=== PATIENT | female | born 2000 | race Asian ===

== ENCOUNTER 2024-04-29 18:14 | Emergency (ER) | payer BC, SELFPAY ==
[2024-04-29 18:26] VITALS: BP 121/71
[2024-04-29 18:51] LABS: % Basophils 0.8 % (0-2); % Eosinophils 3.7 % (0-6); % Immature Granulocytes 0.1 % (0-0.5); % Lymphocytes 40.2 % (20.5-51.1); % Monocytes 12.3 % (1.7-9.3); % Neutrophils 42.9 % (42.2-75.2); Absolute Basophils 0.1 10^3/uL (0-0.2); Absolute Eosinophils 0.3 10^3/uL (0-0.7); Absolute Lymphocytes 2.9 10^3/uL (1.2-3.4); Absolute Monocytes 0.9 10^3/uL (0.1-0.6); Absolute Neutrophils 3.1 10^3/uL (1.4-6.5); Hematocrit 39.4 % (37.0-47.0); Hemoglobin 13.4 g/dL (12.0-16.0); Mean Corpuscular Hgb 29.7 pg (27.0-31.0); Mean Corpuscular Volume 87.4 fL (81.0-99.0); Mean Platelet Volume 9.4 fL (7.4-10.4); Nucleated Red Blood Cells % 0 %; Platelet Count 305 10^3/uL (130-400); Red Blood Cell Count 4.51 10^6/uL (4.20-5.40); Red Cell Dist. Width 12.1 % (11.5-14.5); White Blood Cell Count 7.3 10^3/uL (4.8-10.8)
[2024-04-29 19:02] LABS: HCG, Serum Qualitative Screen Positive
[2024-04-29 19:09] LABS: ALT (SGPT) 22 U/L (0-35); AST (SGOT) 22 U/L (14-36); Albumin 4.2 g/dl (3.5-5.0); Alkaline Phosphatase 48 U/L (38-126); Blood Urea Nitrogen 12 mg/dl (7-17); Calcium 8.9 mg/dl (8.4-10.2); Carbon Dioxide 26 mmol/L (22-30); Chloride 102 mmol/L (98-107); Glucose 96 mg/dl (70-99); Lipase 90 U/L (23-300); Potassium 4.2 mmol/L (3.5-5.1); Sodium 138 mmol/L (135-145); Total Bilirubin 0.2 mg/dl (0.2-1.3); Total Protein 7.1 g/dl (6.3-8.2); eGFR > 60.00
[2024-04-29 20:21] VITALS: BP 121/54
[2024-04-29 20:31] LABS: Beta HCG Quantitative 827.94 mIU/ml
--- NOTE | 2024-04-29 23:05 | ED.GENMED ---
History of Present Illness
General
Chief Complaint: Vaginal Bleeding
Source: patient
Exam Limitations: none
Time Seen by Provider: 04/29/24 20:05
Nursing documentation reviewed up to this point in time: agreed with
History of Present Illness
History of Present Illness:
Patien tot ED wtih complaint of cramping and vaginal bleeding. States LMP 03/09. She had a postitive home test on . No issues until today. 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 . To ED accompanied by spouse for eval.
Past History
Past History
ED Past Medical History: None
ED Past Surgical History: Orthopedic (Right ankle tendon tear)
Social History
Tobacco: Non-smoker
Alcohol: None
Drug: None
Personal: Single
Employment: Student
Review of Systems
Review of Systems
Allergies reviewed?: Yes
All Other Systems: ROS reviewed and negative except as documented in HPI and ROS
Constitutional: Reports no symptoms
EENT: Reports no symptoms
Respiratory: Reports no symptoms
Cardiac: Reports no symptoms
ABD/GI: Reports no symptoms
: Reports bleeding (vaginal bleeding and cramping.)
Musculoskeletal: Reports no symptoms
Skin: Reports no symptoms
Neurological: Reports no symptoms
Psychiatric: Reports no symptoms
Phy Exam
General Physical Exam
General Presentation: well appearing and no apparent distress
General age: appears stated age
General Skin: warm and dry
General Habitus: normal
General Mental: alert
Gastrointestinal Exam
Gastrointestinal Exam: non tender and soft
Genitourinary Exam Female
Exam Female: no CMT, no lesions, no mass and vaginal bleeding (minimal bleeding )
Vaginal Exam: blood
Vaginal Bleeding: minimal
Visual exam of cervix: os closed
Musculoskeletal Exam
Musculoskeletal Exam: full ROM and neuro vasc intact
Skin Exam
Skin Exam: normal color, warm/dry and no rash
Psychiatric Exam
Psychiatric Exam: normal mood/affect
Course
Orders/Labs/Results
Orders:
Orders
04/29/24 18:31
Test Result ONCE
04/29/24 18:36
US W Transvaginal Urgent
Reason For Exam: vaginal bleeding, positive preg test juanis 1
04/29/24 18:38
Type And Crossmatch [Type+Screen] Urgent
Beta HCG Quantitative Urgent
Comment: ADD ON
Complete Blood Count/With Diff Urgent
Comprehensive Metabolic Panel Urgent
HCG, Serum Qualitative Screen Urgent
Lipase Urgent
04/29/24 19:37
Add On- LAB Urgent
Tests Added?: beta quantitative
04/29/24 20:20
ABO2 Urgent
BBK Wristband Number:
Associate notified that ABO2 has been ordered: [id number]
Date: 04/29/24
Time: 18:51
[employer] Blasting ID: [id number]
Abnormal Lab Results
04/29/24
18:38
Absolute Monos (auto) 0.9 H 10^3/uL
(0.1-0.6)
Monocytes % 12.3 H %
(1.7-9.3)
04/29/24 18:38
04/29/24 18:38
Vital Signs
Initial and Last Documented VS:
Initial Vital Signs
Temp Pulse Resp BP Pulse Ox
97.8 F 67 16 121/71 100
04/29/24 18:26 04/29/24 18:26 04/29/24 18:26 04/29/24 18:26 04/29/24 18:26
Last Documented Vital Signs
Temp Pulse Resp BP Pulse Ox
97.8 F 67 18 121/54 97
04/29/24 18:26 04/29/24 18:26 04/29/24 21:03 04/29/24 20:21 04/29/24 21:03
*Radiology
Radiology exam reviewed: radiology read reviewed
*Pulse Oximetry
Patient hypoxic: no
*Critical Care Note
Total Time (30-74mins, 75-104mins- exclusive of procedures): Not Applicable
Update Note
Update Note:
Patient to ED for eval of cramping and vaginal bleleding. LMP 03/09, postive home test on Apr 15. US report reviewed with her. sac noted low in uterus concerning for possible loss. HCG at 820. She has an appt scheduled
for with her OB/leonardo. SHe will call in AM to move appt. WIll need repeat HCG in 2 days. repeat US in 1 week. SHe was given instructions on s/s/ to return to ED and she is agreeable to plan.
ED Attending Note
-
Portions of this chart may have been created with voice recognition software.� Occasional wrong word or��sound alike� substitutions may have occurred due to the inherent limitations of voice recognition software.
Discharge Plan
Departure
Patient Disposition: Home (Routine Discharge)
Date of Disposition: 04/29/24
Time of Disposition: 21:00
Patient with high blood pressure during this ER visit?: No
Condition: Good
Covid-19: Not Applicable
Discharge Problem:
Bleeding in early
Instructions: Threatened Miscarriage (DC)
Prescriptions:
No Action
No Current Medications
0
Activity Restrictions/Additional Instructions:
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 You will need to have your HCG levels checked in 2 days, repeat ultrasound in 1 week. Return to the emergency department immediately for fever/chills, increasing pain, worsening bleeding, weakness, or for any
further concerns.
Interventions
Interventions:
*Risk Screen - Suicide Last Done: 04/29/24 18:26
*General Assessment Last Done: 04/29/24 20:11
*Neglect/Abuse Screening Last Done: 04/29/24 20:11
ED- Fall Risk Assessment Last Done: 04/29/24 20:11
*ED COVID-19 Vaccine History Last Done: 04/29/24 20:11
*Nursing Disposition Last Done: 04/29/24 21:03
ED-Female Genitourinary Assessment Last Done: 04/29/24 20:06
Discharge Date and Time
Discharge Date/Time: 04/29/24 21:17
Print Language: GREEK
== END 2024-04-29 21:17 | disposition home or self-care (01) ==
LOC: EMR 18:14
PROVIDERS: Emergency Medicine; EMERGENCY PHYSICIAN Emergency Medicine
DX: O20.9 Hemorrhage in early pregnancy, unspecified (principal); Z3A.01 Less than 8 weeks gestation of pregnancy
CPT/HCPCS: 99284; 76801; 76817; 80053; 83690; 84702; 84703; 85025; 86850; 86900; 86901